=== PATIENT | female | born 1970 | race Caucasian/White ===

== ENCOUNTER → 2019-12-16 | Outpatient (CLI) | payer OTHER, SELFPAY | END | disposition home or self-care (01) | LOC: PSN 11:13 | PROVIDERS: PCP Internal Medicine; Referring Provider Internal Medicine; Visit Provider Internal Medicine | DX: R00.2 Palpitations (principal) | CPT/HCPCS: 93225; 93226 ==

== ENCOUNTER → 2021-01-03 15:28 | Outpatient (CLI) | payer OTHER, SELFPAY ==
[2020-12-21 15:06] VITALS: BMI 28.6
--- NOTE | 2021-01-03 15:32 | MRI_ITS ---
STUDY: MRI LEFT KNEE REASON FOR EXAM: Female, 50 years old. Knee pain and instability TECHNIQUE: Standardized fat and water weighted pulse sequences were obtained in all 3 orthogonal planes. COMPARISON: 12/21/2020 FINDINGS: Normal medial meniscus. Normal hyaline cartilage of the medial femorotibial compartment. Normal medial femoral condyle and tibial plateau. There is a partial sprain of the MCL with interstitial and periligamentous edema. Normal distal semimembranosus, gracilis and semitendinosus tendons. Normal lateral meniscus. Normal hyaline cartilage of the lateral femorotibial compartment. Normal lateral femoral condyle and tibial plateau. Normal proximal tibiofibular articulation. Normal lateral collateral (fibular) ligament. Normal popliteus tendon. Normal biceps femoris tendon. Normal anterior cruciate ligament (ACL). Normal posterior cruciate ligament (PCL). Shallow trochlear groove with lateral subluxation of patella and edema superolateral Hoffa''s fat pad consistent with patellofemoral maltracking. There is diffuse, greater than 50% thickness articular cartilage loss of the patellofemoral compartment. Normal medial and lateral patellar retinaculum. Normal quadriceps tendon. Normal patellar tendon. Normal Hoffa''s fat pad. There is a small volume joint effusion. The soft tissues are unremarkable. The otherwise visualized osseous structures are unremarkable. MRI/Lower Ext Joint Only (Routine) IMPRESSION: 1. Grade 1 medial collateral ligament tear/sprain. 2. No meniscal tear. 3. 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 4. Small joint effusion Electronically Signed: Ed Mg MD at 16:36 EST Tel , Service support ,
== END ==
PROVIDERS: PCP Internal Medicine; Referring Provider Orthopaedic Surgery; Visit Provider Orthopaedic Surgery
DX: M22.8X2 Other disorders of patella, left knee (principal); M25.562 Pain in left knee
CPT/HCPCS: 73721

== ENCOUNTER 2021-02-22 17:00 | Outpatient (RCR) | payer OTHER, SELFPAY ==
--- NOTE | 2021-01-17 16:42 | HP.PTEVAL_ITS ---
Patient's Visit Information MAYKEL MUHAMMAD is a 50 year old F referred to Physical Therapy by Dr. Monae Finney DO with a diagnosis of Patellofemoral Maltracking, Patellofemoral OA. Date of Evaluation: 01/17/21 Physical Therapist: Caren Moulton DPT - Visit Plan Frequency: 1x/Week Duration: 4 Weeks Plan: Focus on posterior chain exercises, patellar tracking, educate for HEP as pt is very active at home. HEP Issued: clams, prone hip extn, 5 way hip burner and extensive eduation of activity modification and other ideas for tabata exercises. - Subjective Patient reports that she went to see Dr. Fisher for her left knee which was hurting the worst but she has problems with both. Has had knee problems for a long time. She has poor patellar tracking- did some therapy it helped a little then she stopped. Dr. Constantino lateral release on the right- scope on the right and it bothers her but is just living with the right knee. The left in October felt like it was catching and didn't want to bed- felt a crack or pop then it w ent back and that was happening a lot. Pain along the lateral aspect of the knee and then continued to get worse. Has been a little better- has been doing more walk/run vs.Tabata. Pain is mostly on the lateral ascpect of the knee-no radiating pain. Clicking, grinding, dull and achy- sharp when it gets stuck. If she keeps walking or moving the knee releases. No N/T- no spine issues. Has and x-rays and MRI. No cortizone injections but is waiting for insurance. Exercise: tabata is 1-2 x a week- 30 minutes- weights included- made up own tabata (jumping jacks, side steps, push ups, back arch, curls, squats kettle samuel, planks, side leg lift, step ups, box jump, lunges (wall sit), lateral raise). Walk/Run: sidewalks- walk 3 run 1 min for 7 cycles 30-45 minutes a couple of times a week. Active every day. 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 Does not wear a knee brace- tried but it did not help. Sleep: not disturbed. Goals: strengthen muscles so the knee tracks better and reduce pain when working out. PMhx/meds: no changes since she saw Dr. Fisher. - Objective Posture: FH, RS, can correct but does not maintain. Gait: no deviation noted. Stairs: asc/desc 8 recip with no HR- poor eccentric control. HR/TR: able without pain. SLS: 15 sec with moderate hip drop. Squat: weight shift to the right, heels lift and reports pain. Palpation: not tender to touch. Observation: patellar tracking laterally. Strength: Core: fair minus, Hip flexion: 4/5, extn: 4-/5, IR/ER: 4-/5, Add: 4/5, abd: 4/5, Clam: 4-/5, Knee: Extn: 4+/5, Flexion: 4/5, Ankle: 5/5. Flex: HS: moderate, Gastroc: moderate. Special Test: Grind: positive, Pelvic Alignment: WFL - Goals Goal 1:: Patient will be I with HEP and progression Goal Time Frame: 4-6 Weeks Goal 2:: Patient will SLS for 30 sec without hip drop Goal Time Frame: 4-6 Weeks Goal 3:: Patient will demo good squat techniques. Goal Time Frame: 4-6 Weeks Goal 4:: Patient will report no more than 2/10 knee pain for 1 week Goal Time Frame: 4-6 Weeks - Rehabilitation Potential Physical Therapy Diagnosis: Patient presents with hypomobility- she has decreased core strength/stabilization, poor eccentric control, edurance and posterior chain strength leading to poor patellar tracking and pain with ADL's. Rehabilitation Potential: Good - Anticipated Interventions Patient/Client Instruction: Educate patient on: Benefits of Fitness Program Therapeutic Exercise to Include: Strength training, Endurance training, Balance training, Coordination, Agility training, Body mechanics, Postural training, Flexibilty training, Gait and locomotor training, Neuromotor development, Passive ROM, Active ROM, Dynamic Lumbar Stabilization, Scapular Strength/Stabilization For the Purpose of:: To improve muscle performance and motor function TENS: Yes Cryotherapy (ice pack, ice massage): Yes Thermo therapy (hot pack): Yes Ultrasound (thermal/non thermal): Yes For the Purpose of:: To decrease pain Thank you for the opportunity to evaluate your patient. For Medicare and Medicare HMO plans, please review the plan of care and approve it. It will need to be FAXED BACK to us at [phone] for Medicare purposes. For Medicare only, by signing this I certify the plan of care. Please let me know if there are questions or concerns regarding this plan of care. Physician Signature: Date:
--- NOTE | 2021-02-22 17:20 | HP.PTDCSUM ---
It has been my pleasure to treat MAYKEL MUHAMMAD referred by Dr. Monae Finney DO, with the diagnosis of Patellofemoral Maltracking, Patellofemoral OA for a total of 6 visit(s). Discharge Date: Please see the following information for a summary of their discharge status. Subjective: She has had 2 gel injections in the left- and a steroid injection in the right which did not help as much. They are checking to see if she can get gel in the right. She has noticed less clicking. Has been run/walking outside. She has learned a lot of new exercises so she feels confident. % Improvement: 80 Objective/Function: Posture: FH, RS, can correct but does not maintain. Gait: no deviation noted. Stairs: asc/desc 8 recip with no HR-improvedeccentric control. HR/TR: able without pain. SLS: 30 sec with mild hip drop. Squat: weight shift to the right, heels lift and reports no pain. Palpation: not tender to touch. Observation: patellar tracking laterally. Strength: Core: fair, Hip flexion: 4+/5, extn: 4/5, IR/ER: 4/5, Add: 4/5, abd: 4/5, Clam: 4/5, Knee: Extn: 4+/5, Flexion: 4/5, Ankle: 5/5. Flex: HS: moderate, Gastroc: moderate. Goal 1:: Patient will be I with HEP and progression Goal Progress: Goal Met Goal 2:: Patient will SLS for 30 sec without hip drop Goal Progress: Progressing Goal 3:: Patient will demo good squat techniques. Goal Progress: Progressing Goal 4:: Patient will report no more than 2/10 knee pain for 1 week Goal Progress: Progressing Plan: Discharge to I HEP- given today If there are questions or concerns regarding this patient's physical therapy, please feel free to call me at [phone]. Thank you for the referral of this patient. Sincerely, Caren Moulton DPT
== END 2021-02-22 19:00 | disposition home or self-care (01) ==
LOC: PT 17:00
PROVIDERS: PCP Internal Medicine; Referring Provider Orthopaedic Surgery; Visit Provider Orthopaedic Surgery
DX: M17.12 Unilateral primary osteoarthritis, left knee (principal)
CPT/HCPCS: 97110; 97161; 97164